=== PATIENT | male | born 1975 | race Caucasian/White ===

== ENCOUNTER 2019-10-17 14:34 | Emergency (ER) | payer OTHER ==
[2019-10-17] MEDS: GI Cocktail Oral Solution 30 ML PO ONE (15:06)
--- NOTE | 2019-10-17 15:06 | EDM.PDOC ---
ED HPI GENERAL MEDICAL PROBLEM - General Chief Complaint: Gastrointestinal Problem Stated Complaint: STOMACH ACHE Time Seen by Provider: 10/17/19 14:50 Source of Information: Reports: Patient History Limitations: Reports: No Limitations - History of Present Illness INITIAL COMMENTS - FREE TEXT/NARRATIVE: Patient presents to ER with a 2 day history of midepigastric and midsternal discomfort that radiates through to his back. Denies shortness of breath. No diaphoresis, no nausea or vomiting. He states had discomfort like this on Friday but it passed but now its persistent. Has tried Nyquil and Tums without relief. No cardiac history. Does admit to weekly alcohol use, 1/2 pack of cigarettes per day. No history of PUD. No fevers, stools loose today but no blood noted. Onset: Gradual Duration: Day(s):, Constant Location: Reports: Chest, Abdomen Quality: Reports: Burning Severity: Moderate Improves with: Reports: None Associated Symptoms: Reports: Chest Pain. Denies: Confusion, Cough, Fever/ Chills, Loss of Appetite, Nausea/Vomiting, Shortness of Breath Treatments MANAGER CIVIL: Reports: Other Medication(s) Other Treatments MANAGER CIVIL: TUMS, Nyquil - Related Data Allergies Allergy/AdvReac Type Severity Reaction Status Date / Time No Known Drug Allergies Allergy Other Verified 05/08/14 17:01 Home Meds: Home Meds . [No Known Home Meds] 05/08/14 [History] Past Medical History - Past Health History Medical/Surgical History: Denies Medical/Surgical History Social & Family History - Tobacco Use Smoking Status *Q: Current Every Day Smoker Tobacco Use Within Last Twelve Months: Cigarettes ED ROS GENERAL - Review of Systems Review Of Systems: See Below Constitutional: Denies: Fever, Chills, Malaise, Weakness, Fatigue, Decreased Appetite HEENT: Denies: Ear Pain, Rhinitis, Sinus Problem, Throat Pain Respiratory: Denies: Shortness of Breath, Cough Cardiovascular: Reports: Chest Pain. Denies: Edema, Lightheadedness Endocrine: Denies: Fatigue GI/Abdominal: Reports: Abdominal Pain, Diarrhea. Denies: Black Stool, Bloody Stool, Constipation, Nausea, Vomiting : Reports: No Symptoms Musculoskeletal: Reports: No Symptoms Skin: Reports: No Symptoms Neurological: Reports: No Symptoms Psychiatric: Reports: No Symptoms ED EXAM, GI/ABD - Physical Exam Exam: See Below Exam Limited By: No Limitations General Appearance: Alert, WD/WN, No Apparent Distress Eyes: Bilateral: Normal Appearance Ears: Normal External Exam, Normal TMs Nose: Normal Inspection, Normal Mucosa, No Blood Throat/Mouth: Normal Inspection, Normal Oropharynx Head: Normocephalic Neck: Normal Inspection, Supple, Non-Tender Respiratory/Chest: No Respiratory Distress, Lungs Clear, Normal Breath Sounds Cardiovascular: Regular Rate, Rhythm GI/Abdominal Exam: Normal Bowel Sounds, Soft, Non-Tender Extremities: Normal Inspection, No Pedal Edema Neurological: Alert, Oriented Skin Exam: Warm, Dry Course - Orders/Labs/Meds Orders: Active Orders 24 hr Category Date Time Status EKG Documentation Completion [RC] AM Care 10/17/19 14:59 Active Abdomen 2V AP Flat Upright [CR] Stat Exams 10/17/19 14:59 Ordered Chest 2V [CR] Stat Exams 10/17/19 14:59 Ordered Labs: Laboratory Tests 10/17/19 10/17/19 Range/Units 15:14 15:14 WBC 9.1 (4.0-10.0) x10^3/uL RBC 5.29 (4.5-6.0) x10^6/uL Hgb 16.1 (14.0-18.0) g/dL Hct 46.8 (40.0-52.0) % MCV 88.5 (78.0-93.0) fL MCH 30.4 (26.0-32.0) pg MCHC 34.4 (32.0-36.0) g/dL RDW Coeff of Ami 12.8 (10.0-15.0) % Plt Count 313 (130-400) x10^3/uL Neut % (Auto) 72.9 (50.0-80.0) % Lymph % (Auto) 18.2 L (25.0-50.0) % [place] % (Auto) 7.1 (2.0-11.0) % Eos % (Auto) 1.6 (0.0-4.0) % Baso % (Auto) 0.2 (0.2-1.2) % Sodium 138 (136-145) mmol/L Potassium 4.0 (3.5-5.1) mmol/L Chloride 102 (98-107) mmol/L Carbon Dioxide 24 (21-32) mmol/L Anion Gap 16.0 (10-20) mmol/L BUN 11 (7-18) mg/dL Creatinine 1.1 (0.70-1.30) mg/dL Est Cr Clr Drug Dosing TNP Estimated GFR (MDRD) > 60 Glucose 92 (74-106) mg/dL Calcium 8.8 (8.5-10.1) mg/dL Corrected Calcium 8.88 (8.5-10.1) mg/dL Total Bilirubin 0.8 (0.2-1.0) mg/dL AST 19 (15-37) U/L ALT 43 (16-63) U/L Alkaline Phosphatase 109 (46-116) U/L Troponin I < 0.017 (<=0.056) ng/mL C-Reactive Protein 2.7 H (<=0.9) mg/dL Total Protein 7.6 (6.4-8.2) g/dL Albumin 3.9 (3.4-5.0) g/dL Globulin 3.7 Albumin/Globulin Ratio 1.05 Amylase 35 (25-115) U/L Lipase 53 L (73-393) U/L Meds: Medications Discontinued Medications Generic Name Dose Route Start Last Admin Trade Name Freq PRN Reason Stop Dose Admin Al Hydroxide/Mg Hydroxide 30 ml 10/17/19 15:00 10/17/19 15:06 Gi Cocktail PO 10/17/19 15:01 30 ml ONETIME ONE Administration Pantoprazole Sodium 40 mg 10/17/19 16:12 Protonix PO 10/17/19 16:13 ONETIME ONE - Re-Assessments/Exams Free Text/Narrative Re-Assessment/Exam: 10/17/19 16:04 Patient has been given a GI cocktail without much relief, Nitro did not provide much change. Questions "if just hungry". Labs are all normal and stable. 10/17/19 16:16 Discussed lab and xray results with patient. Will give Protonix today. Discussed meds, discharge plan. If pain persists despite meds, follow up with primary and may need to have further work up for gallbladder or EGD. Departure - Departure Time of Disposition: 16:18 Disposition: Home, Self-Care 01 Condition: Good Clinical Impression: Abdominal pain - Discharge Information *PRESCRIPTION DRUG MONITORING PROGRAM REVIEWED*: No *COPY OF PRESCRIPTION DRUG MONITORING REPORT IN PATIENT POLA: No Referrals: PCP,None [Primary Care Provider] - Forms: ED Department Discharge Additional Instructions: 1. Push fluids 2. [place] diet 3. Carafate 1 gm three times a day for 14 days 4. Protonix 40 mg daily for one month 5. If pain persists after a week, consider follow up with PCP for gallbladder work up versus EGD. Sepsis Event Note - Focused Exam Date Exam was Performed: 10/17/19 Time Exam was Performed: 16:16 - My Orders Last 24 Hours: My Active Orders 10/17/19 14:59 EKG Documentation Completion [RC] AM Abdomen 2V AP Flat Upright [CR] Stat Chest 2V [CR] Stat - Assessment/Plan Last 24 Hours: My Active Orders 10/17/19 14:59 EKG Documentation Completion [RC] AM Abdomen 2V AP Flat Upright [CR] Stat Chest 2V [CR] Stat
[2019-10-17] MEDS: Nitroglycerin 0.4 MG Tab.SL SL STA (15:38)
[2019-10-17 15:44] LABS: CHLORIDE,CL 102 mmol/L (98-107); SODIUM,NA 138 mmol/L (136-145)
[2019-10-17] MEDS: Pantoprazole 40 MG Tab.CR PO ONE (16:28)
--- NOTE | 2019-10-17 16:38 | CR ---
[id number] RAD/RAD Chest PA And Lateral EXAM: RAD Chest PA And Lateral INDICATION: CHEST PAIN. COMPARISON: None. DISCUSSION: Cardiomediastinal silhouette is normal in size and contour. No infiltrate, effusion, pneumothorax, or edema. IMPRESSION: No acute cardiopulmonary abnormality. Fidencio Zimmerman DO 10/17/19 [id number] Thank you for allowing us to participate in the care of your patient.
--- NOTE | 2019-10-17 16:39 | CR ---
[id number] RAD/RAD Abd Flat and Upright 2V EXAM: RAD Abd Flat and Upright 2V INDICATION: CHEST PAIN. COMPARISON: None. DISCUSSION: Unobstructed bowel gas pattern. No radiographically evident pneumoperitoneum. IMPRESSION: No acute findings in the abdomen. Fidencio Zimmerman DO 10/17/19 [id number] Thank you for allowing us to participate in the care of your patient.
== END 2019-10-17 16:36 | disposition home or self-care (01) ==
LOC: VM.ED 14:34
DX: R10.13 Epigastric pain (principal); F17.210 Nicotine dependence, cigarettes, uncomplicated
CPT/HCPCS: 36415; 71046; 74019; 80053; 82150; 83690; 84484; 85025; 86140; 93005; 99285-25; A9270-GY